=== PATIENT | male | born 1965 ===

== ENCOUNTER 2017-10-23 11:35 | Outpatient (CLI) | payer OTHER | END 2017-10-23 11:42 | disposition home or self-care (01) | LOC: SONOGRAMA 11:35 | DX: E04.1 Nontoxic single thyroid nodule (principal) ==

== ENCOUNTER 2018-06-08 05:30 | Day surgery (SDC) | payer OTHER ==
[~2018-06-08 05:30] MED LIST: CLONAZEPAM1 MG PO; LEXAPRO20 MG PO; RESTORIL30 M1 PO; SYNTHROID50 MCG PO
[2018-06-08] MEDS ORDERED: PERCOCET 5-3251 EACH PO (08:43)
[2018-06-08] MEDS ORDERED: NUPERCAINAL56.7 GM TOP (08:43)
[2018-06-08] MEDS ORDERED: KETOROLAC TROME10 MG PO (08:43)
[2018-06-08] MEDS ORDERED: NEURONTIN300 MG PO (08:43)
== END 2018-06-08 12:26 | disposition home or self-care (01) ==
LOC: CIR.AMB 05:30
DX: K60.1 Chronic anal fissure (principal)

== ENCOUNTER 2021-02-05 11:44 | Outpatient (CLI) | payer OTHER ==
[~2021-02-05 11:44] MED LIST changes: +KETOROLAC TROME10 MG PO; +NEURONTIN300 MG PO; +NUPERCAINAL56.7 GM TOP; +PERCOCET 5-3251 EACH PO
== END 2021-02-05 12:34 | disposition home or self-care (01) ==
LOC: SONOGRAMA 11:44
PROVIDERS: ATTEND Pathology Anatomic Pathology & Clinical Pathology
DX: D34 Benign neoplasm of thyroid gland (principal); E04.8 Other specified nontoxic goiter